=== PATIENT | female | born 1950 | race Caucasian/White ===

== ENCOUNTER 2017-12-18 19:14 | Emergency (ER) | payer OTHER, MEDICAID ==
[~2017-12-18] VITALS: Ht 157.5 cm; Wt 90.7 kg
[2017-12-18 19:20] VITALS: BP 177/90
--- NOTE | 2017-12-18 19:25 | NUR ---
to bed # 11 via w/c, report given to JAMIE Rebolledo
--- NOTE | 2017-12-18 19:43 | NUR ---
X-Ray at bedside.
--- NOTE | 2017-12-18 20:07 | NUR ---
PT BIB FRIEND FOR CHEST PAIN THAT STARTED TODAY AROUND 1300 PT ALSO C/O RT SIDED WEAKNESS X1 YEAR. PT STATES SHE IS RIGHT HANDED AND THINKS SHE HAD "MILD STROKE" ABOUT A YEAR AGO BECAUSE SHE IS RIGHT HANDED AND UNABLE TO USE RIGHT HAND "LIKE BEFORE". PT IS AWAKE AND ACTING APPROPRIATE, APPEARS TO BE IN NO ACUTE DISTRESS. RR EVEN AND UNLABORED. PT LAYING IN BED W/ FRIEND AT BEDSIDE. PMH HTN, DM (PT CURRENTLY NOT TAKING ANY MEDICATIONS)
[2017-12-18 20:12] LABS: BASOPHILS # (AUTO) 0.1 K/uL (0.00-0.22); BASOPHILS % (AUTO) 0.7 % (0.0-2.0); EOSINOPHILS # (AUTO) 0.2 K/uL (0-0.4); EOSINOPHILS % (AUTO) 2.7 % (0.0-4.0); HEMATOCRIT 35.2 % (36-48); HEMOGLOBIN 10.9 g/dL (12.0-16.0); MEAN CORPUSCULAR HEMOGLOBIN 23 pg (27-31); MEAN CORPUSCULAR HGB CONC 31 g/dL (33-37); MEAN CORPUSCULAR VOLUME 74.4 fL (80-94); MONOCYTES # (AUTO) 0.5 K/uL (0.8-1.0); NEUTROPHILS # (AUTO) 3.9 K/uL (1.8-7.7); NEUTROPHILS % (AUTO) 51.6 % (42.2-75.2); PLATELET COUNT (AUTO) 174 K/uL (140-450); RED BLOOD CELL COUNT(AUTO) 4.73 MIL/uL (4.20-5.40); RED CELL DISTRIBUTION WIDTH 15.8 % (11.6-13.7); WHITE BLOOD COUNT (AUTO) 7.6 K/uL (4.8-10.8)
[2017-12-18 20:23] LABS: ALBUMIN 3.1 g/dL (3.4-5.0); CREATININE 1.1 mg/dL (0.6-1.3); TOTAL BILIRUBIN 0.2 mg/dL (0.0-1.0)
[2017-12-18 20:29] LABS: ANION GAP 5.6 (8-16); CARBON DIOXIDE 30.9 mmol/L (21-32); POTASSIUM 3.5 mmol/L (3.5-5.1)
[2017-12-18 20:30] LABS: PROTHROMBIN TIME 9.9 secs (10.8-13.4)
--- NOTE | 2017-12-18 20:40 | NUR ---
Dr. Landon evaluating patient at bedside.
--- NOTE | 2017-12-18 21:01 | NUR ---
Patient discharged with v/s stable. Written and verbal after care instructions given and explained. Patient alert, oriented and verbalized understanding of instructions. Ambulatory with steady gait. All questions addressed prior to discharge. ID band removed. Patient advised to follow up with PMD. Rx of MOTRIN, CIPRO given. Patient educated on indication of medication including possible reaction and side effects. Opportunity to ask questions provided and answered.
[2017-12-18 21:02] VITALS: BP 182/89
== END 2017-12-18 21:01 | disposition home or self-care (01) ==
LOC: MED 19:14
DX: R60.0 Localized edema (principal); R07.89 Other chest pain; N39.0 Urinary tract infection, site not specified; E11.9 Type 2 diabetes mellitus without complications; I10 Essential (primary) hypertension
CPT/HCPCS: 36415; 71045; 80053; 81002; 82948; 83880; 84484; 85025; 85610; 85730; 93005; 99285; Q0092

== ENCOUNTER 2021-04-27 14:59 | Emergency (ER) | payer OTHER, MEDICAID ==
[~2021-04-27] VITALS: Ht 160 cm; Wt 82.6 kg
--- NOTE | 2021-04-27 15:01 | NUR ---
Pt w/c assisted to bed 10. ERMD at bedside evaluating Pt.
[2021-04-27 15:06] VITALS: BP 139/75
--- NOTE | 2021-04-27 15:11 | NUR ---
PER DR. HO CODE BRAIN CALLED.
--- NOTE | 2021-04-27 15:13 | NUR ---
PT TAKEN TO CT VIA [facility].
--- NOTE | 2021-04-27 15:28 | NUR ---
PT TAKEN TO ER BED 10 VIA [facility].
--- NOTE | 2021-04-27 15:43 | NUR ---
GAVE REPORT TO CRISTIAN PIERSON AT [facility]. ETA 10MINUTES.
--- NOTE | 2021-04-27 15:45 | NUR ---
Patient to be transferred to [place]. Is being transferred due to HIGHER LEVEL OF CARE. Receiving facility has accepting physician and available space. ER physician has signed transfer form. Patient or responsible alliance party has agreed to transfer and signed form. Patient belongings inventoried and will be sent with patient. Copy of nursing notes, lab reports, EKG, Physicians Orders and X-rays to be sent with patient. Report called to CRISTIAN PIERSON at receiving facility. [facility] ambulance service has been called for transfer. ETA is 10 MINUTES.
[2021-04-27 15:57] VITALS: BP 139/75
[2021-04-27 16:14] LABS: BASOPHILS % (AUTO) 0.6 % (0.0-2.0); EOSINOPHILS # (AUTO) 0.1 K/uL (0-0.4); EOSINOPHILS % (AUTO) 2.4 % (0.0-4.0); HEMATOCRIT 34.2 % (36-48); HEMOGLOBIN 10.9 g/dL (12.0-16.0); LYMPHOCYTES # (AUTO) 1.6 K/uL (2.5-16.5); MEAN CORPUSCULAR HEMOGLOBIN 24 pg (27-31); MEAN CORPUSCULAR HGB CONC 32 g/dL (33-37); MEAN CORPUSCULAR VOLUME 73.6 fL (80-94); MONOCYTES # (AUTO) 0.4 K/uL (0.8-1.0); MONOCYTES % (AUTO) 6.5 % (1.7-9.3); NEUTROPHILS # (AUTO) 3.5 K/uL (1.8-7.7); NEUTROPHILS % (AUTO) 61.5 % (42.2-75.2); PLATELET COUNT (AUTO) 222 K/uL (140-450); RED BLOOD CELL COUNT(AUTO) 4.64 MIL/uL (4.20-5.40); RED CELL DISTRIBUTION WIDTH 15.4 % (11.6-13.7); WHITE BLOOD COUNT (AUTO) 5.7 K/uL (4.8-10.8)
[2021-04-27 16:31] LABS: PROTHROMBIN TIME 9.8 secs (10.8-13.4)
[2021-04-27 16:36] LABS: ALBUMIN 3.1 g/dL (3.4-5.0); ANION GAP 14.7 (8-16); CARBON DIOXIDE 28.5 mmol/L (21-32); CREATININE 1.1 mg/dL (0.6-1.3); POTASSIUM 4.2 mmol/L (3.5-5.1); TOTAL BILIRUBIN 0.2 mg/dL (0.0-1.0)
== END 2021-04-27 15:45 | disposition short-term general hospital (02) ==
LOC: MED 14:59
DX: R29.810 Facial weakness (principal); E11.9 Type 2 diabetes mellitus without complications; I10 Essential (primary) hypertension; R41.0 Disorientation, unspecified
CPT/HCPCS: 36415; 70450; 71045; 80053; 84484; 85025; 85610; 85730; 86886; 86900; 86901; 93005; 99285